=== PATIENT | female | born 1970 | race Two or more races ===

== ENCOUNTER 2017-10-06 13:54 | Emergency (ER) | payer MEDICAID, OTHER ==
[~2017-10-06] VITALS: Ht 165.1 cm; Wt 98.6 kg
[2017-10-06 16:08] VITALS: BP 166/91
== END 2017-10-06 16:15 | disposition home or self-care (01) ==
LOC: ED 15:55
DX: L03.116 Cellulitis of left lower limb (principal)
CPT/HCPCS: 99284